=== PATIENT | male | born 1970 | race Two or more races ===

== ENCOUNTER 2017-09-13 20:01 | Emergency (ER) | payer OTHER ==
[~2017-09-13] VITALS: Ht 182.9 cm; Wt 72.6 kg
--- NOTE | 2017-09-13 20:01 | NUR ---
BBRA FROM DETENTION; "CHEST PAIN X A FEW HOURS". NOTED VERY ANXIOUS. PT IS TACHYCARDIC BUT OTHERWISE VSS NAD A/OX4. WILL CONTINUE TO MONITOR FOR ANY CHANGES DURING THE SHIFT.
[2017-09-13] MEDS ORDERED: HYDROCODONE/APAP 10/325MG 1 EA TABLET PO ONE (20:30)
--- NOTE | 2017-09-13 20:37 | NUR ---
EKG AT BEDSIDE
--- NOTE | 2017-09-13 20:40 | NUR ---
ASSESSMENT EXPERT AT BEDSIDE
[2017-09-13 20:44] LABS: BASOPHILS % (AUTO) 0.4 % (0.0-2.0); EOSINOPHILS % (AUTO) 2.3 % (0.0-6.0); HEMATOCRIT 45 % (39-51); HEMOGLOBIN 15.8 g/dL (13.5-17.5); LYMPHOCYTES # (AUTO) 2.3 /CMM (0.8-4.8); LYMPHOCYTES % (AUTO) 25.8 % (20.0-44.0); MEAN CORPUSCULAR HGB CONC 35 g/dl (31.0-36.0); MEAN CORPUSCULAR VOLUME 90 fL (80-96); MONOCYTES # (AUTO) 0.6 /CMM (0.1-1.30); MONOCYTES % (AUTO) 6.1 % (2.0-12.0); NEUTROPHILS # (AUTO) 5.9 /CMM (1.8-8.9); NEUTROPHILS % (AUTO) 65.4 % (43.0-81.0); PLATELET COUNT (AUTO) 365 /CMM (150-450); RDW COEFFICIENT OF VARIATION 12.3 (11.5-15.0); RED BLOOD CELL COUNT(AUTO) 5.02 MIL/uL (4.5-6.0)
[2017-09-13 20:55] LABS: CALCIUM, SERUM 8.7 mg/dL (8.5-10.1); CARBON DIOXIDE 26 mmol/L (21-32); CHLORIDE 105 mmol/L (98-107); GLUCOSE 96 mg/dL (74-106); SODIUM SERUM 137 mmol/L (136-145); UREA NITROGEN, BLOOD 17 mg/dL (7-18)
[2017-09-13] MEDS ORDERED: HYDROCODONE/APAP 10/325MG 1 EA TABLET ONE (20:57)
[2017-09-13 21:04] LABS: TROPONIN I < 0.017 ng/mL (0.00-0.056)
[2017-09-13 21:17] LABS: INR 0.98 (0.85-1.15)
[2017-09-13 21:39] VITALS: BP 144/92
== END 2017-09-13 21:39 ==
LOC: ER 20:05
DX: R07.89 Other chest pain (principal); I10 Essential (primary) hypertension; J45.909 Unspecified asthma, uncomplicated
CPT/HCPCS: 36415; 71045; 80048; 84484; 85025; 85730; 93005; 99285; A4606; J7030; Z7610